=== PATIENT | female | born 1985 | race Caucasian/White ===

== ENCOUNTER 2017-04-24 07:34 | Inpatient (IN) | payer MEDICAID ==
[2017-04-24 08:16] LABS: APPEARANCE,URINE SLIGHTLY-CLOUDY; BILIRUBIN,URINE NEGATIVE (NEGATIVE); COLOR,URINE YELLOW; GLUCOSE, URINE NEGATIVE (NEGATIVE); KETONES,URINE NEGATIVE (NEGATIVE); LEUKOCYTE ESTERASE,URINE NEGATIVE (NEGATIVE); NITRITE,URINE NEGATIVE (NEGATIVE); PROTEIN,URINE NEGATIVE (NEGATIVE); URINE SPECIFIC GRAVITY 1.013; UROBILINOGEN,URINE NEGATIVE mg/dL (<2.0)
[2017-04-24 08:41] LABS: URINE AMPHETAMINES SCREEN NEGATIVE; URINE BARBITURATES SCREEN NEGATIVE; URINE BENZODIAZEPINES SCREEN NEGATIVE; URINE COCAINE SCREEN NEGATIVE; URINE MARIJUANA (THC) SCREEN NEGATIVE; URINE METHADONE SCREEN NEGATIVE; URINE PHENCYCLIDINE SCREEN NEGATIVE
[2017-04-24] MEDS ORDERED: MISOPROSTOL 0.2 MG TABLET ONE (08:49)
[2017-04-24] MEDS ORDERED: OXYTOCIN 10 UNIT/ML VIAL ONE (08:50)
[2017-04-24] MEDS ORDERED: LIDOCAINE 1% INJ-PF (10 MG/ML) 30 ML SDV ONE (08:50)
[2017-04-24] MEDS ORDERED: OXYTOCIN/NORMAL SALINE 20 UNIT/1,000 ML RTUINJ ONE (08:50)
[2017-04-24] MEDS ORDERED: PSEUDOEPHEDRINE HCL 30 MG TABLET PO PRN (09:07)
[2017-04-24] MEDS ORDERED: ACETAMINOPHEN 650 MG SUPP.RECT PR PRN (09:07)
[2017-04-24] MEDS ORDERED: PROMETHAZINE HCL 25 MG SUPP.RECT PR PRN (09:07)
[2017-04-24] MEDS ORDERED: ACETAMINOPHEN WITH CODEINE #3 TABLET PO PRN ×2 (09:07)
[2017-04-24] MEDS ORDERED: GLYCERIN/WITCH HAZEL LEAF 1 EACH MED..PAD TP PRN (09:07)
[2017-04-24] MEDS ORDERED: PROMETHAZINE HCL INJ 25 MG/1 ML VIAL IV PRN (09:07)
[2017-04-24] MEDS ORDERED: DIBUCAINE 1% OINTMENT 28 GM TP PRN (09:07)
[2017-04-24] MEDS ORDERED: DIPHENHYDRAMINE HCL 25 MG CAPSULE PO PRN (09:07)
[2017-04-24] MEDS ORDERED: BENZOCAINE/MENTHOL AEROSOL SPRAY 56 ML TOP PRN (09:07)
[2017-04-24] MEDS ORDERED: OXYTOCIN/NORMAL SALINE 20 UNIT/1,000 ML RTUINJ IV PRN (09:07)
[2017-04-24] MEDS ORDERED: DIPH/PERTUSS(ACELL)/TETANUS VAC/PF 0.5 ML SYR (>=10YO) IM PRN (09:07)
[2017-04-24] MEDS ORDERED: PROMETHAZINE HCL 25 MG TABLET PO PRN (09:07)
[2017-04-24] MEDS ORDERED: NA PHOS,M-B/NA PHOS,DI-BA (ADULT) 133 ML ENEMA PR PRN (09:07)
[2017-04-24] MEDS ORDERED: MEASLES,MUMPS&RUBELLA VACC/PF 0.5 ML VIAL SUBCUT PRN (09:07)
[2017-04-24] MEDS ORDERED: MAGNESIUM HYDROXIDE SUSP 30 ML UDCUP PO PRN (09:07)
[2017-04-24] MEDS ORDERED: ZOLPIDEM TARTRATE 5 MG TABLET PO PRN (09:07)
--- NOTE | 2017-04-24 10:05 | Warning Signs in Babies ---
VOD Warning Signs Datetime Report Generated by [facility]: 04/24/2017 10:05 VOD#608 -Warning Signs in Babies: Needs to be viewed. (04/24/2017 07:39:Isak Ye RN)
[2017-04-24] MEDS ORDERED: IBUPROFEN 800 MG TABLET ONE (10:34)
[2017-04-24] MEDS ORDERED: ACETAMINOPHEN 325 MG TABLET ONE (10:34)
--- NOTE | 2017-04-24 11:11 | Warning Signs in Babies ---
VOD Warning Signs Datetime Report Generated by [facility]: 04/24/2017 11:11 VOD#608 -Warning Signs in Babies: Viewed with Parent(s)/Family (04/24/2017 07:39:Isak Ye RN)
--- NOTE | 2017-04-24 11:12 | Warning Signs in Babies ---
VOD Warning Signs Datetime Report Generated by [facility]: 04/24/2017 11:12 VOD#608 -Warning Signs in Babies: Viewed with Parent(s)/Family (04/24/2017 10:18:Isak Ye RN)
--- NOTE | 2017-04-24 11:14 | Delivery Summary ---
Del Sum A-C Datetime Report Generated by CPN: 04/24/2017 11:14 DELIVERY PERSONNEL DELIVERY PERSONNEL: [id number] Delivery Doctor:: Layne Muñiz MD Labor and Delivery Nurse:: Isak Ye RN Labor and Delivery Nurse:: Beatriz Vincent RN Additional Personnel: : Almaz WoodCHIPC MATERNAL INFORMATION Delivery Anesthesia: None Medications After Delivery: Pitocin 10 Units IM Estimated Blood Loss (ml): 150 Maternal Complications: Precipitous Labor (<3hrs) Provider Comments: precipitous delivery within 30min of arrival LABOR SUMMARY EDC: 04/23/2017 00:00 No. Babies in Womb: 1 Attempted: No Labor Anesthesia: None LABOR INFORMATION Reason for Induction: Not Applicable Onset of Labor: 04/24/2017 07:57 Complete Dilatation: 04/24/2017 08:47 Oxytocin: N/A Group B Beta Strep: negative Steroids Given: None Reason Steroids Not Administered: Not Applicable MEMBRANES Membranes Rupture Method: Spontaneous Rupture of Membranes: 04/24/2017 08:45 Length of Rupture (hr): 0.12 Amniotic Fluid Color: Clear Amniotic Fluid Amount: Small Amniotic Fluid Odor: Normal STAGES OF LABOR Stage 1 hr: 0 Stage 1 min: 50 Stage 2 hr: 0 Stage 2 min: 5 Stage 3 hr: 0 Stage 3 min: 5 Total Time in Labor hr: 1 Total Time in Labor min: 0 VAGINAL DELIVERY Episiotomy: None Laceration #1: None Laceration Extension #1: N/A Laceration Repair: Not Applicable Sponge Count Correct: N/A Sharps Count Correct: N/A CSECTION DELIVERY Primary Indication: N/A Secondary Indication: N/A CSection Urgency: n/a CSection Incidence: n/a Labor: N/A Elective: N/A CSection Incision: N/A BABY A INFORMATION Delivery Date/Time: 04/24/2017 08:52 Method of Delivery: Vaginal Born in Route : No : N/A Forceps: N/A Vacuum Extraction: N/A Shoulder Dystocia : No PRESENTATION/POSITION BABY A Presentation: Cephalic Cephalic Presentation: Vertex Vertex Position: Left Occipital Anterior Breech Presentation: N/A PLACENTA INFORMATION BABY A Placenta Delivery Time : 04/24/2017 08:57 Placenta Method of Delivery: Spontaneous Placenta Status: Delivered SCORES BABY A Heart Rate 1 min: >100 bpm Resp Effort 1 min: Good Cry Reflex Irritability 1 min: Cough or Sneeze or Pulls Away Muscle Tone 1 min: Active Motion Color 1 min: Body Elcho, Extremities Blue Resuscitation Effort 1 min: Tactile Stimulation SCORE 1 MIN: 9 Heart Rate 5 min: >100 bpm Resp Effort 5 min: Good Cry Reflex Irritability 5 min: Cough or Sneeze or Pulls Away Muscle Tone 5 min: Active Motion Color 5 min: Completely Elcho SCORE 5 MIN: 10 INFORMATION BABY A Gestational Age at Delivery: 40.1 Gestational Status: Full Term- 39- 40.6 Weeks Outcome : Liveborn Condition : Stable Sex: Female IDENTIFICATION BABY A Infant Verification Date/Time: 04/24/2017 09:18 ID Band Number: [id number] Mother's Name Verified: Yes Infant RN Verifying Infant: D Bellavance RNC Additional Verifying Personnel: Beverly Haywood 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 Cord Vessels: 3 Nuchal Cord : N/A Cord Blood Taken: Yes-For Eval (Mom's Blood Type - or O+) Infant Suction: None ASSESSMENT BABY A Complications: None Physical Findings at Delivery: Within Normal Limits; Other Physical Findings- Other: see nursery notes Infant Respirations: Appears Normal Skin to Skin: Yes Roof Slater/ALS Called : No Care By: Laci Wood RNC Transferred To: Remains with Mother BABY B INFORMATION : N/A
[2017-04-24 11:46] LABS: RUBELLA IGG ANTIBODY 6.97 IU/mL
[2017-04-24 11:48] LABS: RUBELLA INTERPRETATION NEGATIVE
--- NOTE | 2017-04-24 12:08 | Admission Physical ---
Datetime Report Generated by CPN: 04/24/2017 12:07 CURRENT ADMISSION Chief Complaint: Uterine Contractions Indication for Induction: Not Applicable Indication for Induction: Term, Intrauterine ; Active Labor Admit Plan: Admit to Unit; Initiate Labor Protocol ALLERGIES Medication Allergies: Yes Medication Allergies: cefuroxime (04/24/2017) Latex: No Latex Allergies OBSTETRICAL HISTORY EDC: 04/23/2017 00:00 : 5 Para: 4 Term: 3 : 1 SAB: 0 IAB: 0 Ectopic: 0 Livin Cesareans: 0 VBACs: 0 Multiple Births: 0 Gestational Diabetes: No Rh Sensitization: No Incompetent Cervix: No GABRIELA: No Infertility: No ART Treatment: No Uterine Anomaly: No IUGR: No Hx Previous C/S: No Macrosomia: No Hx Loss/Stillborn: No PIH: No Hx : No Placenta Previa/Abruption: No Depression/PP Depression: No PTL/PROM: No Post Hemorrhage: No Current Procedures: Ultrasound; NST Obstetrical History Comments: G1-2007 36 wks G2 2011 39 wks G3 2013 39 wks G4 2014 39 wks SEE RECORDS Alcohol: No Marijuana : No Cocaine: No Other Illicit Drugs: No Cigarettes: Never Smoker. [id number] MEDICAL HISTORY Diabetes: No Blood Transfusion: No Pulmonary Disease (Asthma, TB): No Breast Disease: No Hypertension: No Aws Developer Surgery: No Heart Disease: No Hosp/Surgery: No Autoimmune Disorder: No Anesthetic Complications: No Kidney Disease: No Abnormal Pap Smear: No Neuro/Epilepsy: No Psychiatric Disorders: No Other Medical Diseases: No Hepatitis/Liver Disease: No Significant Family History: No Varicosities/Phlebitis: No Trauma/Violence : No Thyroid Dysfunction: No INFECTIOUS HISTORY Gonorrhea: No Genital Herpes: No Chlamydia: No Tuberculosis: No Syphilis: No Hepatitis: No HIV/AIDS Exposure: No Rash or Viral Illness: No HPV: No PHYSICAL EXAM General: Normal HEENT: Normal Neurologic: Normal Thyroid: Normal Heart: Normal Lungs: Normal Breast: Normal Back: Normal Abdomen: Normal Genitourinary Exam: Normal Extremities: Normal DTRs: Normal Pelvic Type: Adequate Vital Signs: Reviewed VAGINAL EXAM Dilatation: 10 Effacement: 100 Station: 3 MEMBRANES Pooling: Positive Membranes: Ruptured Amniotic Fluid Color: Clear FETUS A EGA: 40.1 Monitoring: External US FHR- Baseline: 150 Variability: Moderate 6-25bpm Accelerations: 15X15 Decelerations: None FHR Category: Category I Estimated Weight (gm): 3500 Presentation: Vertex Admit Comment: delivered within 30 min of arrival to unit PLANS FOR LABOR AND DELIVERY Labor and Delivery: None Pain Management: Epidural Feeding Preference: Breast Benefit of Breast Feed Discussed: Yes Circumcision: Yes INFORMED CONSENT Signature: with User ID: [email or web address]
[2017-04-24] MEDS: DOCUSATE SODIUM 100 MG CAPSULE PO SCH ×2 (12:27→19:04)
[2017-04-24] MEDS: FAMOTIDINE 20 MG TABLET PO SCH ×2 (12:27→21:29)
[2017-04-24] MEDS: PRENATAL VITAMIN W DHA CAPSULE PO SCH (12:28)
[2017-04-24] MEDS: SENNOSIDES/DOCUSATE 8.6-50 MG 1 EACH TABLET PO SCH (12:28)
[2017-04-24] MEDS: FERROUS SULFATE 325 MG TABLET PO SCH ×2 (12:28→19:04)
[2017-04-24 13:45] LABS: HEMATOCRIT 35.3 % (36.0-47.0); HEMOGLOBIN 11.2 g/dL (12.0-15.5); MEAN CORPUSCULAR HGB CONC 31.7 g/dL (32.0-36.0); MEAN CORPUSCULAR VOLUME 76 fl (80-97); PLATELET COUNT 252 10^3/uL (150-450); RED BLOOD COUNT 4.66 10^6/uL (3.72-5.28); RED CELL DISTRIBUTION WIDTH 18.9 % (11.5-14.0); WHITE BLOOD COUNT 11.8 10^3/uL (4.0-10.5)
[2017-04-24] MEDS: IBUPROFEN 800 MG TABLET PO SCH ×2 (15:20→21:28)
[2017-04-25] MEDS: IBUPROFEN 800 MG TABLET PO SCH ×3 (05:58→22:49)
[2017-04-25 07:41] LABS: HEPATITIS C VIRUS AB <0.1 s/co ratio (0.0-0.9)
[2017-04-25 08:00] LABS: HEMATOCRIT 29.8 % (36.0-47.0); HEMOGLOBIN 9.7 g/dL (12.0-15.5); MEAN CORPUSCULAR HEMOGLOBIN 24.5 pg (27.0-33.4); MEAN CORPUSCULAR HGB CONC 32.4 g/dL (32.0-36.0); MEAN CORPUSCULAR VOLUME 76 fl (80-97); PLATELET COUNT 209 10^3/uL (150-450); RED BLOOD COUNT 3.94 10^6/uL (3.72-5.28); RED CELL DISTRIBUTION WIDTH 19.1 % (11.5-14.0); WHITE BLOOD COUNT 10.3 10^3/uL (4.0-10.5)
[2017-04-25 09:24] LABS: HEPATITS B SURFACE ANTIGEN Negative (Negative)
[2017-04-25] MEDS: FERROUS SULFATE 325 MG TABLET PO SCH ×2 (09:45→17:18)
[2017-04-25] MEDS: DOCUSATE SODIUM 100 MG CAPSULE PO SCH ×2 (09:45→17:19)
[2017-04-25] MEDS: SENNOSIDES/DOCUSATE 8.6-50 MG 1 EACH TABLET PO SCH (09:45)
[2017-04-25] MEDS: FAMOTIDINE 20 MG TABLET PO SCH ×2 (09:45→22:49)
[2017-04-25] MEDS: PRENATAL VITAMIN W DHA CAPSULE PO SCH (09:46)
--- NOTE | 2017-04-25 13:18 | PDOC PROGRESS REPORT ---
Subjective-OB Subjective: Post Delivery Day:1 31 year old G5 now P5 s/p ppd1. Ambulating, voiding and without difficulty. Denies any needs at this time Physical Exam (OB) Vital Signs: Temp Pulse Resp BP Pulse Ox 97.8 F 65 14 118/72 98 04/25/17 07:52 04/25/17 07:52 04/25/17 07:52 04/25/17 07:52 04/25/17 07:52 Intake & Output 04/24/17 04/25/17 04/26/17 06:59 06:59 06:59 Weight 97 kg - General General Appearance: Appears well In distress: None - Episiotomy/Laceration Site Condition: N/A - Lochia Lochia Amount: Small 10-25 ml Lochia Color: Rubra/Red - Abdomen Description: Soft Hernia Present: No Flatus Presence: Present Fundal Description: Firm, Midline Fundal Height: u/u - u/2 - Respiratory Respiratory Status: No respiratory distress - Extremities Upper extremity: Normal inspection Lower extremities: Normal inspection - Neurological Cognition: Normal Orientation: AAOx4 - Psychological Associated symptoms: Normal affect, Normal mood Objective-Diagnostic Laboratory: 04/25/17 07:37 04/24/17 04/24/17 04/25/17 10:00 10:00 07:37 WBC 11.8 H 10.3 RBC 4.66 3.94 Hgb 11.2 L 9.7 L Hct 35.3 L 29.8 L MCV 76 L 76 L MCH 24.0 L 24.5 L MCHC 31.7 L 32.4 RDW 18.9 H 19.1 H Plt Count 252 209 Blood Type O POSITIVE Antibody Screen NEGATIVE Assessment and Plan(PN) - Assessment and Plan (1) Acute blood loss anemia Is this a current diagnosis for this admission?: Yes Plan: inc. dietary iron and feso4 BID. (2) Vaginal delivery Is this a current diagnosis for this admission?: Yes Plan: routine pp care - Time Spent with Patient Time with patient: Less than 15 minutes Medications reviewed and adjusted accordingly: Yes - Disposition Anticipated Discharge: Home Within: within 24 hours
[2017-04-26] MEDS: IBUPROFEN 800 MG TABLET PO SCH (06:20)
[2017-04-26] MEDS: SENNOSIDES/DOCUSATE 8.6-50 MG 1 EACH TABLET PO SCH (09:37)
[2017-04-26] MEDS: DOCUSATE SODIUM 100 MG CAPSULE PO SCH (09:37)
[2017-04-26] MEDS: PRENATAL VITAMIN W DHA CAPSULE PO SCH (09:37)
[2017-04-26] MEDS: FERROUS SULFATE 325 MG TABLET PO SCH (09:37)
[2017-04-26] MEDS: FAMOTIDINE 20 MG TABLET PO SCH (09:38)
--- NOTE | 2017-04-26 10:51 | PDOC DISCHARGE SUMMARY ---
Final Diagnosis Discharge Date: 04/26/17 - Final Diagnosis (1) Acute blood loss anemia Is this a current diagnosis for this admission?: Yes (2) Vaginal delivery Is this a current diagnosis for this admission?: Yes Discharge Data - Discharge Medication Home Medications: Vit,Calc76/Iron/Folic [Prenatabs Rx Tablet] 1 tab PO DAILY 04/24/17 Intrapartum Procedure(s): Spontaneous Vaginal Delivery - Diagnosis Test Laboratory: Temp Pulse Resp BP Pulse Ox 98.3 F 73 16 110/64 98 04/26/17 07:19 04/26/17 07:19 04/26/17 07:19 04/26/17 07:19 04/26/17 07:19 04/24/17 04/24/17 04/25/17 07:52 10:00 07:37 RBC 4.66 3.94 Hgb 11.2 L 9.7 L Hct 35.3 L 29.8 L Urine Opiates Screen NEGATIVE - Discharge information/Instructions Discharge Activity: Activity As Tolerated Discharge Diet: Regular Disposition: HOME, SELF-CARE Follow up with: [facility] in: 4
[2017-04-26 11:47] VITALS: BP 118/72
== END 2017-04-26 13:00 | disposition home or self-care (01) | DRG 775 ==
LOC: LC 07:34 → LR 08:55 → 2S 12:06
PROVIDERS: ADMIT Obstetrics & Gynecology; ATTEND Obstetrics & Gynecology
PROC: 10E0XZZ Delivery of Products of Conception, External Approach (ICD-10-PCS; principal; 2017-04-24)
PROC: 4A1HXCZ Monitoring of Products of Conception, Cardiac Rate, External Approach (ICD-10-PCS; 2017-04-24)
DX: O62.3 Precipitate labor (principal); D62 Acute posthemorrhagic anemia; O99.02 Anemia complicating childbirth; Z28.21 Immunization not carried out because of patient refusal; Z3A.40 40 weeks gestation of pregnancy; Z37.0 Single live birth
CPT/HCPCS: 36415; 80307; 81005; 85027; 86592; 86762; 86803; 86804; 86850; 86900; 86901; 87340; J2590; J3490

== ENCOUNTER 2018-03-08 18:29 | Emergency (ER) | payer OTHER, MEDICAID ==
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
[2018-03-08 21:43] VITALS: BP 118/78
== END 2018-03-08 21:42 | disposition home or self-care (01) ==
LOC: ER 18:29
DX: S09.90XA Unspecified injury of head, initial encounter (principal); F44.89 Other dissociative and conversion disorders; R51 Headache; H53.8 Other visual disturbances; M54.2 Cervicalgia; M54.9 Dorsalgia, unspecified; F41.9 Anxiety disorder, unspecified; Z87.891 Personal history of nicotine dependence; V87.7XXA Person injured in collision between other specified motor vehicles (traffic), initial encounter; Y92.410 Unspecified street and highway as the place of occurrence of the external cause
CPT/HCPCS: 99284; 70450; 72125; L0120

== ENCOUNTER → 2018-06-14 | Outpatient (CLI) | payer MEDICAID | LOC: OD 11:20 | PROVIDERS: ATTEND Family Medicine | DX: M22.2X2 Patellofemoral disorders, left knee (principal) ==

== ENCOUNTER 2019-03-16 11:08 | Emergency (ER) | payer MEDICAID ==
--- NOTE | 2019-03-16 11:52 | ER Document Report ---
ED Medical Screen (RME) - General Chief Complaint: Vag Bleeding, +preg <12wks Stated Complaint: VAGINAL BLEEDING Time Seen by Provider: 03/16/19 11:44 Primary Care Provider: EUGENIO MONDRAGON MD [Primary Care Provider] - Follow up as needed Mode of Arrival: Ambulatory Information source: Patient Notes: 33-year-old female presented to ED for complaint of pelvic cramping and vaginal bleeding. She is 5 weeks . She is 6 para 5. Patient is alert oriented respirations regular nonlabored speaking in full sentences. States the bleeding is like a stool cycle. I have greeted and performed a rapid initial assessment of this patient. A comprehensive ED assessment and evaluation of the patient, analysis of test results and completion of medical decision making process will be conducted by an additional ED providers. TRAVEL OUTSIDE OF THE [place] IN LAST 30 DAYS: No - Related Data Allergies/Adverse Reactions: cefuroxime Allergy (Verified 04/24/17 07:50) Past Medical History Renal/ Medical History: Reports: Hx Peritoneal Dialysis Psychiatric Medical History: Reports: Hx Anxiety Physical Exam - Vital signs Vitals: Temp Pulse BP Pulse Ox 99.1 F 78 126/77 H 99 03/16/19 11:12 03/16/19 11:12 03/16/19 11:12 03/16/19 11:12 Course - Vital Signs Vital signs: Temp Pulse Resp BP Pulse Ox 99.1 F 78 126/77 H 99 03/16/19 11:12 03/16/19 11:12 03/16/19 11:12 03/16/19 11:12 Doctor's Discharge - Discharge Referrals: EUGENIO MONDRAGON MD [Primary Care Provider] - Follow up as needed
--- NOTE | 2019-03-16 12:45 | RADIOLOGY REPORT (SQ) ---
EXAM DESCRIPTION: U/S OB TRANSVAGINAL W/O DOP COMPLETED DATE/TIME: 03/16/2019 12:20 pm REASON FOR STUDY: Cramping vaginal bleeding COMPARISON: None. TECHNIQUE: Transvaginal static and realtime grayscale images acquired of the pelvis. Additional cruz cted spectral and color Doppler images recorded. All images stored on PACs. CLINICAL AGE: 5 weeks 1 day. BHCG: Not available. LIMITATIONS: None. FINDINGS: UTERUS: No visualized intrauterine . RIGHT ADNEXA: Normal ovary with normal vascular flow. No adnexal free fluid. 2 simple cysts measuring up to 5 cm. LEFT ADNEXA: Normal ovary with normal vascular flow. No adnexal free fluid. No adnexal masses. FREE FLUID: None. OTHER: No other significant finding. IMPRESSION: NO VISUALIZED INTRA- OR EXTRAUTERINE . bHCG LEVEL NOT AVAILABLE FOR CORRELATION WITH US FINDINGS. ECTOPIC CANNOT BE EXCLUDED. FOLLOW-UP ULTRASOUND AND SERIAL BHCG LEVELS STRONGLY RECOMMENDED TO ACCURATELY ASSESS STATU S. TECHNICAL DOCUMENTATION: JOB ID: [id number] [email or web address]- All Rights Reserved Reading location - IP/workstation name: [email or web address]
[2019-03-16 12:49] LABS: ABSOLUTE BASOPHILS # (AUTO) 0.1 10^3/uL (0.0-0.2); ABSOLUTE EOSINOPHILS # (AUTO) 0.3 10^3/uL (0.0-0.6); ABSOLUTE LYMPHOCYTES (AUTO) 1.2 10^3/uL (0.5-4.7); ABSOLUTE MONOCYTES (AUTO) 0.5 10^3/uL (0.1-1.4); BASOPHILS % (AUTO) 0.9 % (0-2); HEMATOCRIT 40.1 % (36.0-47.0); HEMOGLOBIN 13.4 g/dL (12.0-15.5); LYMPHOCYTES % (AUTO) 19.2 % (13-45); MEAN CORPUSCULAR HGB CONC 33.4 g/dL (32.0-36.0); MEAN CORPUSCULAR VOLUME 87 fl (80-97); MONOCYTES % (AUTO) 7.6 % (3-13); PLATELET COUNT 213 10^3/uL (150-450); RED BLOOD COUNT 4.61 10^6/uL (3.72-5.28); SEGMENTED NEUTROPHILS % (AUTO) 67.3 % (42-78); TOTAL CELLS COUNTED % (AUTO) 100 %
[2019-03-16 13:13] LABS: ALBUMIN 4.3 g/dL (3.5-5.0); ALKALINE PHOSPHATASE 67 U/L (38-126); ANION GAP 8 (5-19); ASPARTATE AMINO TRANSFERASE 26 U/L (14-36); BILIRUBIN,DIRECT 0.1 mg/dL (0.0-0.4); BILIRUBIN,TOTAL 0.9 mg/dL (0.2-1.3); BLOOD UREA NITROGEN 8 mg/dL (7-20); CARBON DIOXIDE 27 mmol/L (22-30); CHLORIDE 107 mmol/L (98-107); GLUCOSE 89 mg/dL (75-110); POTASSIUM 4.3 mmol/L (3.6-5.0); TOTAL PROTEIN 7.5 g/dL (6.3-8.2)
--- NOTE | 2019-03-16 14:13 | ER Document Report ---
ED General - General Chief Complaint: OB Problem (<20wks) Stated Complaint: VAGINAL BLEEDING Time Seen by Provider: 03/16/19 11:44 Primary Care Provider: EUGENIO MONDRAGON MD [ACTIVE STAFF] - Follow up in 3-5 days Mode of Arrival: Ambulatory Information source: Patient Notes: This 33-year-old female approximately 5 weeks G6, P5 presents to the emergency department with very light bleeding and some abdominal cramping. Denies trauma. Denies pain with void. Denies other symptoms such as fever vomiting diarrhea. Has not followed up with DEPLOYMENT TECHNICIAN yet. Reports that she has been 5 times each 1 has been a vaginal without complications. TRAVEL OUTSIDE OF THE [place] IN LAST 30 DAYS: No - Related Data Allergies/Adverse Reactions: cefuroxime Allergy (Verified 04/24/17 07:50) Past Medical History - General Information source: Patient Last Menstrual Period: 02/08/19 - Social History Smoking Status: Unknown if Ever Smoked Chew tobacco use (# tins/day): No Frequency of alcohol use: None Drug Abuse: None Lives with: Family Family History: Reviewed & Not Pertinent Patient has suicidal ideation: No Patient has homicidal ideation: No Psychiatric Medical History: Reports: Hx Anxiety Review of Systems - Review of Systems Notes: Review HPI for review of systems., All other systems negative Physical Exam - Vital signs Vitals: Temp Pulse BP Pulse Ox 99.1 F 78 126/77 H 99 03/16/19 11:12 03/16/19 11:12 03/16/19 11:12 03/16/19 11:12 - Notes Notes: PHYSICAL EXAMINATION: GENERAL: Well-appearing and in no acute distress HEAD: Atraumatic, normocephalic. EYES: Pupils equal round . Moist mucous membranes. NECK: Normal range of motion, supple without lymphadenopathy LUNGS: CTAB and equal. No wheezes rales or rhonchi. HEART: Regular rate and rhythm without murmurs ABDOMEN: Soft, no tenderness. No guarding, no rebound EXTREMITIES: Normal range of motion, NEUROLOGICAL: Cranial nerves grossly intact. PSYCH: Normal mood, normal affect. SKIN: Warm, Dry, normal turgor, no rashes or lesions noted Course - Re-evaluation Re-evalutation: 03/16/19 19:32 This 33-year-old female approximately 5 weeks G6, P5, presents emergency department with complaints of some abdominal cramping. Reports all previous pregnancies were vaginal births without complications. Patient reports last menstrual period was February 08. Patient was instructed on labs. Instructed on no IUP visualized. She was also instructed on possibility of ectopic and the importance of close follow-up. She was given a referral sheet to get outpatient hCG. She was also instructed on the importance of follow-up ultrasound. She was instructed to return the emergency department for severe pain uncontrolled bleeding. She verbalized understanding to all instructions. 03/16/19 12:31 03/16/19 12:31 MCV 87 fl (80-97) 03/16/19 12:31 MCH 29.0 pg (27.0-33.4) 03/16/19 12:31 MCHC 33.4 g/dL (32.0-36.0) 03/16/19 12:31 RDW 14.0 % (11.5-14.0) 03/16/19 12:31 Seg Neutrophils % 67.3 % (42-78) 03/16/19 12:31 Chloride 107 mmol/L (98-107) 03/16/19 12:31 Carbon Dioxide 27 mmol/L (22-30) 03/16/19 12:31 Anion Gap 8 (5-19) 03/16/19 12:31 Est GFR ( Amer) > 60 (>60) 03/16/19 12:31 Glucose 89 mg/dL (75-110) 03/16/19 12:31 Calcium 9.0 mg/dL (8.4-10.2) 03/16/19 12:31 Total Bilirubin 0.9 mg/dL (0.2-1.3) 03/16/19 12:31 AST 26 U/L (14-36) 03/16/19 12:31 Alkaline Phosphatase 67 U/L (38-126) 03/16/19 12:31 Total Protein 7.5 g/dL (6.3-8.2) 03/16/19 12:31 Albumin 4.3 g/dL (3.5-5.0) 03/16/19 12:31 Urine Color YELLOW 03/16/19 13:25 Urine Appearance SLIGHTLY-CLOUDY 03/16/19 13:25 Urine pH 6.0 (5.0-9.0) 03/16/19 13:25 Ur Specific [place] 1.016 03/16/19 13:25 Urine Protein NEGATIVE mg/dL (NEGATIVE) 03/16/19 13:25 Urine Glucose (UA) NEGATIVE mg/dL (NEGATIVE) 03/16/19 13:25 Urine Ketones NEGATIVE mg/dL (NEGATIVE) 03/16/19 13:25 Urine Blood LARGE (NEGATIVE) H 03/16/19 13:25 Urine RBC (Auto) >182 /HPF 03/16/19 13:25 Blood Type O POSITIVE 03/16/19 12:31 Obstetrics Ultrasound 03/16/19 11:52 IMPRESSION: NO VISUALIZED INTRA- OR EXTRAUTERINE . bHCG LEVEL NOT AVAILABLE FOR CORRELATION WITH US FINDINGS. ECTOPIC CANNOT BE EXCLUDED. FOLLOW-UP ULTRASOUND AND SERIAL BHCG LEVELS STRONGLY RECOMMENDED TO ACCURATELY ASSESS STATUS. Dictation of this chart was performed using voice recognition software; there fore, there may be some unintended grammatical errors. 03/16/19 19:34 - Vital Signs Vital signs: Temp Pulse Resp BP Pulse Ox 98.6 F 77 14 122/70 100 03/16/19 14:34 03/16/19 14:34 03/16/19 14:34 03/16/19 14:34 03/16/19 14:34 - Laboratory Result Diagrams: 03/16/19 12:31 03/16/19 12:31 Laboratory results interpreted by me: 03/16/19 03/16/19 12:31 13:25 Beta HCG, Quant 13.62 H Urine Blood LARGE H Discharge - Discharge Clinical Impression: Condition: Stable Disposition: HOME, SELF-CARE Instructions: Ectopic Precaution ([facility]), Ob-Chief Knowledge Officer Doctors, ([facility]) Additional Instructions: *You have been evaluated for abdominal cramping, Your ultrasound was inconclusive no intrauterine was visualized. Your hCG level was very low 13.62. An ectopic cannot be ruled out. *You may call [facility] for your results on Monday, March 19 from noon to midnight *Please follow-up on Monday, March 18 for repeat hCG level. *Follow-up with DEPLOYMENT TECHNICIAN within 1 week for evaluation and ultrasound. *Return to ED for worsening condition, changes, needs, severe abdominal pain, vaginal bleeding, concerns Monitor your blood pressure. Your blood pressure was elevated today. This may be because you were anxious, in pain or because you need medication. It is important to follow up with your primary care provider for full evaluation. Forms: Elevated Blood Pressure, Follow-Up Laboratory Testing, Return to Work Referrals: EUGENIO MONDRAGON MD [ACTIVE STAFF] - Follow up in 3-5 days
[2019-03-16 14:18] LABS: APPEARANCE,URINE SLIGHTLY-CLOUDY; BILIRUBIN,URINE NEGATIVE (NEGATIVE); COLOR,URINE YELLOW; GLUCOSE, URINE NEGATIVE (NEGATIVE); KETONES,URINE NEGATIVE (NEGATIVE); PROTEIN,URINE NEGATIVE (NEGATIVE); URINE SPECIFIC GRAVITY 1.016; UROBILINOGEN,URINE NEGATIVE mg/dL (<2.0)
[2019-03-16 14:37] VITALS: BP 122/70
== END 2019-03-16 14:36 | disposition home or self-care (01) ==
LOC: ER 11:08
DX: O46.91 Antepartum hemorrhage, unspecified, first trimester (principal); O26.891 Other specified pregnancy related conditions, first trimester; R10.9 Unspecified abdominal pain; Z3A.01 Less than 8 weeks gestation of pregnancy
CPT/HCPCS: 36415; 76817; 80053; 81001; 84702; 85025; 86900; 86901; 99284

== ENCOUNTER → 2019-03-18 | Outpatient (CLI) | payer MEDICAID | LOC: OD 12:52 | PROVIDERS: ATTEND Nurse Practitioner Family | DX: O26.899 Other specified pregnancy related conditions, unspecified trimester (principal); R10.9 Unspecified abdominal pain; Z3A.00 Weeks of gestation of pregnancy not specified | CPT/HCPCS: 36415; 84702 ==

== ENCOUNTER 2020-03-09 10:07 | Inpatient (IN) | payer BC, MEDICAID ==
[2020-03-09 10:43] LABS: APPEARANCE,URINE CLOUDY; BILIRUBIN,URINE NEGATIVE (NEGATIVE); COLOR,URINE YELLOW; GLUCOSE, URINE NEGATIVE (NEGATIVE); KETONES,URINE NEGATIVE (NEGATIVE); LEUKOCYTE ESTERASE,URINE MODERATE (NEGATIVE); NITRITE,URINE NEGATIVE (NEGATIVE); PROTEIN,URINE NEGATIVE (NEGATIVE); URINE SPECIFIC GRAVITY 1.008; UROBILINOGEN,URINE NEGATIVE mg/dL (<2.0)
[2020-03-09 10:58] LABS: URINE AMPHETAMINES SCREEN NEGATIVE; URINE BARBITURATES SCREEN NEGATIVE; URINE BENZODIAZEPINES SCREEN NEGATIVE; URINE COCAINE SCREEN NEGATIVE; URINE MARIJUANA (THC) SCREEN NEGATIVE; URINE METHADONE SCREEN NEGATIVE; URINE PHENCYCLIDINE SCREEN NEGATIVE
[2020-03-09] MEDS ORDERED: RINGERS SOLUTION,LACTATED 1,000 ML IV ONE (10:59)
[2020-03-09] MEDS ORDERED: RINGERS SOLUTION,LACTATED 1,000 ML IV PRN (10:59)
--- NOTE | 2020-03-09 11:06 | Admission Physical ---
Datetime Report Generated by CPN: 03/09/2020 11:06 CURRENT ADMISSION Chief Complaint: Uterine Contractions Admit Impression : Term, Intrauterine ; Active Labor Admit Plan: Admit to Unit; Initiate Labor Protocol ALLERGIES Medication Allergies: cefuroxime (03/09/2020) OBSTETRICAL HISTORY EDC: 03/09/2020 00:00 : 7 Para: 5 Term: 5 : 0 SAB: 1 IAB: 0 Ectopic: 0 Livin Cesareans: 0 Multiple Births: 0 Obstetrical History Comments: G1 - 12/06/07 36wk female 5lbs , multiple defects (per records) G2 - 05/22/2011 39wk male 6lbs G3 - 04/10/2013 39wk male 7lbs G4 - 02/17/2015 39wk male 8lbs G5 - 04/24/2017 40wk female [id number]; PPH 03/19/2019 SAB G7 - current SEE RECORDS Alcohol: No Marijuana : No Cocaine: No Cigarettes: Never Smoker. [id number] PHYSICAL EXAM General: Normal HEENT: Normal Neurologic: Normal Thyroid: Normal Heart: Normal Lungs: Normal Breast: Normal Back: Normal Abdomen: Normal Genitourinary Exam: Normal Extremities: Normal DTRs: Normal Pelvic Type: Adequate Vital Signs: Reviewed FETUS A EGA: 40.0 Monitoring: External US FHR- Baseline: 135 Variability: Moderate 6-25bpm Accelerations: 15X15 Decelerations: None Admit Comment: presents c/o increasing contractions this morning, Denies SROM. VE per RN 580/-2. GBS negative. Hx of PPH but denies needing blood transfusion in the past. Vtx on Leapolds, EFW 8+4. Pt is considering an epidural. Dr Murphy is the Attending and aware of pt status. INFORMED CONSENT Assignment: Lisa Murphy MD Signature: with User ID: [email or web address] : with User ID: [email or web address]
[2020-03-09 11:58] LABS: ABSOLUTE EOSINOPHILS # (AUTO) 0.3 10^3/uL (0.0-0.6); ABSOLUTE LYMPHOCYTES (AUTO) 1.3 10^3/uL (0.5-4.7); ABSOLUTE MONOCYTES (AUTO) 0.6 10^3/uL (0.1-1.4); ABSOLUTE NEUT (AUTO) 5.1 10^3/uL (1.7-8.2); BASOPHILS % (AUTO) 0.5 % (0-2); EOSINOPHILS % (AUTO) 4.1 % (0-6); HEMATOCRIT 32.5 % (36.0-47.0); HEMOGLOBIN 10.8 g/dL (12.0-15.5); LYMPHOCYTES % (AUTO) 17.9 % (13-45); MEAN CORPUSCULAR HGB CONC 33.4 g/dL (32.0-36.0); MEAN CORPUSCULAR VOLUME 78 fl (80-97); MONOCYTES % (AUTO) 7.7 % (3-13); PLATELET COUNT 196 10^3/uL (150-450); RED BLOOD COUNT 4.17 10^6/uL (3.72-5.28); RED CELL DISTRIBUTION WIDTH 16.3 % (11.5-14.0); SEGMENTED NEUTROPHILS % (AUTO) 69.8 % (42-78); TOTAL CELLS COUNTED % (AUTO) 100 %; WHITE BLOOD COUNT 7.3 10^3/uL (4.0-10.5)
[2020-03-09] MEDS ORDERED: EPHEDRINE SULFATE INJ 50 MG/1 ML AMPULE ONE (13:03)
[2020-03-09] MEDS ORDERED: FENTANYL/BUPIVACAINE/NS/PF 300 MCG/150 ML RTUINJ EPI ONE (13:03)
[2020-03-09] MEDS ORDERED: MISOPROSTOL 0.2 MG TABLET ONE (13:04)
[2020-03-09] MEDS ORDERED: OXYTOCIN 10 UNIT/ML VIAL ONE (13:04)
[2020-03-09] MEDS ORDERED: ROPIVACAINE HCL 0.2% INJ/PF (2 MG/ML) 20 ML SDV ONE (13:04)
[2020-03-09] MEDS ORDERED: OXYTOCIN/0.9 % SODIUM CHLORIDE 30 UNIT/500 ML RTUINJ ONE (13:04)
[2020-03-09] MEDS ORDERED: LIDOCAINE 1% INJ-PF (10 MG/ML) 30 ML SDV ONE (13:04)
--- NOTE | 2020-03-09 14:13 | L&D Progress Notes ---
PROGRESS NOTES Datetime Report Generated by CPN: 03/09/2020 14:12 PROGRESS NOTE Impression: Normal Progression of Labor; Reassuring Heart Rate Procedures: Artificial ROM; Sterile Vag Exam Plan: Continue Present Management; Anticipate Vaginal Delivery Vital Signs : Reviewed Comment: Comfortable w/ epidural. VE /-1, AROM w/ blood tinged clear fluid. Position changes encouraged. Anticipate LAST VAGINAL EXAM-NURSING Nursing Exam Dilitation: 8.0 Nursing Exam Effacement: 90 Nursing Exam Station: -2 MEMBRANES Membranes: Ruptured Amniotic Fluid Color: Bloody FETUS A FHR - Baseline: 135 Monitoring: External US Variability: Moderate 6-25bpm Accelerations: 15X15 Decelerations: None FHR Category: Category I SIGNATURE SIGNATURE: [id number];13,[id number] Assignment: Lisa Murphy MD Signature: with User ID: [email or web address] : with User ID: [email or web address]
[2020-03-09] MEDS ORDERED: PROMETHAZINE HCL 25 MG TABLET PO PRN (16:27)
[2020-03-09] MEDS ORDERED: PROMETHAZINE HCL INJ 25 MG/1 ML VIAL IV PRN (16:27)
[2020-03-09] MEDS ORDERED: PROMETHAZINE HCL 25 MG SUPP.RECT PR PRN (16:27)
[2020-03-09] MEDS ORDERED: MEASLES,MUMPS&RUBELLA VACC/PF 0.5 ML VIAL SUBCUT PRN (16:27)
[2020-03-09] MEDS ORDERED: PSEUDOEPHEDRINE HCL 30 MG TABLET PO PRN (16:27)
[2020-03-09] MEDS ORDERED: ACETAMINOPHEN 650 MG SUPP.RECT PR PRN (16:27)
[2020-03-09] MEDS ORDERED: ACETAMINOPHEN WITH CODEINE #3 TABLET PO PRN (16:27)
[2020-03-09] MEDS ORDERED: OXYTOCIN/0.9 % SODIUM CHLORIDE 30 UNIT/500 ML RTUINJ IV PRN (16:27)
[2020-03-09] MEDS ORDERED: BENZOCAINE/MENTHOL AEROSOL SPRAY 56 ML TOP PRN (16:27)
[2020-03-09] MEDS ORDERED: MAGNESIUM HYDROXIDE SUSP 30 ML UDCUP PO PRN (16:27)
[2020-03-09] MEDS ORDERED: GLYCERIN/WITCH HAZEL LEAF 1 EACH MED..WIPE TP PRN (16:27)
[2020-03-09] MEDS ORDERED: NA PHOS,M-B/NA PHOS,DI-BA (ADULT) 133 ML ENEMA PR PRN (16:27)
[2020-03-09] MEDS ORDERED: DIPHENHYDRAMINE HCL 25 MG CAPSULE PO PRN (16:27)
[2020-03-09] MEDS ORDERED: ZOLPIDEM TARTRATE 5 MG TABLET PO PRN (16:27)
[2020-03-09] MEDS ORDERED: DIPH/PERTUSS(ACELL)/TETANUS VAC/PF 0.5 ML SYR (>=10YO) IM PRN (16:27)
[2020-03-09] MEDS ORDERED: DIBUCAINE 1% OINTMENT 28 GM TP PRN (16:27)
--- NOTE | 2020-03-09 18:07 | Warning Signs in Babies ---
VOD Warning Signs Datetime Report Generated by [facility]: 03/09/2020 18:07 VOD#608 -Warning Signs in Babies: Viewed with Parent(s)/Family (03/09/2020 10:13:Colette Guo RN)
--- NOTE | 2020-03-09 18:07 | Birth Certificate Data ---
Cert Data Datetime Report Generated by [facility]: 03/09/2020 18:07 CERTIFICATE DATA 47a. Care: Yes (03/09/2020 10:13:Colette Guo RN) 47b. Date of First Visit: 08/13/2019 00:00 (03/09/2020 10:13:Colette Guo RN) 47c. Date of Last Visit: 03/03/2020 00:00 (Annotations: Data stored by Adriana on behalf of user) (03/09/2020 10:13:Colette Guo RN) 47d. Number of Visits: 14 (03/09/2020 10:13:Colette Guo RN) 48a. Number of Prev Live Births: 5 (03/09/2020 10:13:Colette Guo RN) 48b. Now Livin (03/09/2020 10:13:Colette Guo RN) 48c. Live Births Now : 0 (03/09/2020 10:13:QS system process) 48d. Date of Last Live : 04/24/2017 00:00 (03/09/2020 10:13:Colette Guo RN) 48e. Losses: 1 (03/09/2020 10:13:Colette Guo RN) 48f. Date of Last Preg Loss: 03/19/2019 00:00 (03/09/2020 10:13:Colette Guo RN) RISK FACTORS IN THIS 49a. Diabetes: No (03/09/2020 10:13:Colette Guo RN) 49b. Hypertension: No (03/09/2020 10:13:Colette Guo RN) 49c. Previous Births: 0 (03/09/2020 10:13:Colette Guo RN) 49d. Stillborns: No (03/09/2020 10:13:Colette Guo RN) 49d. IUGR: No (03/09/2020 10:13:Colette Guo RN) 49e. Infertility Treatment: No (03/09/2020 10:13:Colette Guo RN) 49f. Previous Cesareans: 0 (03/09/2020 10:13:Colette Guo RN) Mother's Height 50b. Height Inches: 67 (03/09/2020 11:05:QS system process) Mother's Weight 51a. Pre- Weight (lbs): 175 (03/09/2020 10:13:Colette Guo RN) 51b. Weight at Delivery (lbs): 229 (03/09/2020 11:05:QS system process) Infections Present/Treated 53a. Gonorrhea: No (03/09/2020 10:13:Colette Guo RN) Results this Hospital Visit : Negative (03/09/2020 10:13:Tiana Lemons RN) 53b. Syphilis: No (03/09/2020 10:13:Colette Guo RN) 53c. Chlamydia: No (03/09/2020 10:13:Colette Guo RN) Results this Hospital Visit: Negative (03/09/2020 10:13:Tiana Lemons RN) 53d. Hepatitis B: No (03/09/2020 10:13:Colette Guo RN) Results this Hospital Visit: Negative (03/09/2020 10:13:Tiana Lemons RN) 53e. Hepatitis C: Negative (03/09/2020 10:13:Tiana Lemons RN) 53h. Mother Tested for HBsAG: Yes (03/09/2020 10:13:Tiana Lemons RN) 53i. Date Tested: 08/13/2019 00:00 (03/09/2020 10:13:Tiana Lemons RN) 53j. Test Result: Negative (03/09/2020 10:13:Tiana Lemons RN) Obstetric Procedures 54a, b, c. Obstetric Procedures: Ultrasound; NST (03/09/2020 10:13:Colette Guo RN) Cigarette Smoking Cigarette Smoking: Never Smoker. [id number] (03/09/2020 10:13:Colette Guo RN) 55a. 3 Months Before Preg - Ci (03/09/2020 10:13:Colette Guo RN) 55a. Packs: 0 (03/09/2020 10:13:Colette Guo RN) 55b. 1st Trimester of Preg- Ci (03/09/2020 10:13:Colette Guo RN) 55b. Packs: 0 (03/09/2020 10:13:Colette Guo RN) 55c. 2nd Trimester of Preg- Ci (03/09/2020 10:13:Colette Guo RN) 55c. Packs: 0 (03/09/2020 10:13:Colette Guo RN) 55d. 3rd Trimester of Preg- Ci (03/09/2020 10:13:Colette Guo RN) 55d. Packs: 0 (03/09/2020 10:13:Colette Guo RN) Onset of Labor 56a. PROM >12 Hrs: 2.17 (03/09/2020 10:13:QS system process) 56b. Precipitous Labor <3 Hrs: 6 (03/09/2020 10:13:QS system process) 56c. Prolonged Labor > 20 Hrs: 6 (03/09/2020 10:13:QS system process) 57a. Induction of Labor: N/A (03/09/2020 10:13:Colette Guo RN) 57c. Non-Vertex Presentation A: Vertex (03/09/2020 10:13:Colette Guo RN) 57d. Steroids - Lung Mat: None (03/09/2020 10:13:Colette Guo RN) 57d. Steroids - Lung Mat: Not Applicable (03/09/2020 10:13:Colette Guo RN) 57f. Mat [place] or Temp >100.4: 98.4 (03/09/2020 10:13:Colette Guo RN) 57g. Moderate/Heavy Meconium: Clear (03/09/2020 14:06:Colette Guo RN) 57h. Intolerance of Labor: N/A (03/09/2020 10:13:FELIX Alba) : N/A (03/09/2020 10:13:FELIX Alba) 57i. Epidural/Spinal Anesthesia: Epidural (03/09/2020 10:13:Colette Guo RN) Method of Delivery 58a. Forceps - Unsuccessful A: N/A (03/09/2020 10:13:Colette Guo RN) 58b. Vacuum - Unsuccessful A: N/A (03/09/2020 10:13:Colette Guo RN) 58c. Presentation at 58c. Presentation at - A : Vertex (03/09/2020 10:13:Colette Guo RN) 58c. Presentation at - A : N/A (03/09/2020 10:13:Colette Guo RN) 58c. Presentation at - A : Cephalic (03/09/2020 16:01:Colette Guo RN) Final Route and Method of Del 58d. Baby A Route/Delivery: Vaginal (03/09/2020 16:16:Colette Guo RN) 58e. Trial of Labor Attempted: No (03/09/2020 10:13:Colette Guo RN) 58e. Trial of Labor Attempted A: N/A (03/09/2020 10:13:Colette Guo RN) Maternal Morbidity 59b. 3rd or 4th Degree Lacs: None (03/09/2020 10:13:Diana MeyerGEORGETTE) Birthweight Baby A: 4247 (03/09/2020 10:13:Yovana Hurley RN) 60a. Pounds : 9 (03/09/2020 10:13:QS system process) 60b. Ounces: 6 (03/09/2020 10:13:QS system process) 61. GA at Delivery Baby A: 40.0 (03/09/2020 10:13:Colette Guo RN) : Full Term- 39- 40.6 Weeks (03/09/2020 10:13:QS system process) 62a. 5 Minute Baby A: 9 (03/09/2020 10:13:QS system process)
--- NOTE | 2020-03-09 18:07 | Delivery Summary ---
Del Sum A-C Datetime Report Generated by CPN: 03/09/2020 18:07 DELIVERY PERSONNEL DELIVERY PERSONNEL: [id number] Nurse Tank Crewmember Certified:: Diana Meyer CNM Labor and Delivery Nurse:: Colette Guo RN Environmental Conservation Officer/SOLID PLASTERER: Carmenza [facility] Environmental Conservation Officer/SOLID PLASTERER: Shannon Fernandez CST Additional Personnel: : Page Avitia RN MATERNAL INFORMATION Delivery Anesthesia: Epidural Medications After Delivery: Pitocin 30 Units in 500ml NS/D5W Delivery QBL: 200 Maternal Complications: None Provider Comments: of VMI, Nuchal cord x 2 noted, unable to reduce. Pt vigorous and crying placed on pts abdoman in stable condition. Cord clamped and cut, cord blood collected. Placenta S/C/I, thickened area of membranes noted, will sent placenta to path. Ff w/ decreased lochia. IV Pitocin infusing. Perineum intact. Apgars 8,9. QBL 200. Pt plans to breastfeed. Attending MD is Dr Murphy LABOR SUMMARY EDC: 03/09/2020 00:00 No. Babies in Womb: 1 Attempted: No Labor Anesthesia: Epidural LABOR INFORMATION Reason for Induction: Not Applicable Onset of Labor: 03/09/2020 10:00 Complete Dilatation: 03/09/2020 16:01 Oxytocin: N/A Group B Beta Strep: negative Antibiotics # of Doses: 0 Steroids Given: None Reason Steroids Not Administered: Not Applicable MEMBRANES Membranes Rupture Method: Artificial Rupture of Membranes: 03/09/2020 14:06 Length of Rupture (hr): 2.17 Amniotic Fluid Color: Clear Amniotic Fluid Amount: Small Amniotic Fluid Odor: None STAGES OF LABOR Stage 1 hr: 6 Stage 1 min: 1 Stage 2 hr: 0 Stage 2 min: 15 Stage 3 hr: 0 Stage 3 min: 5 Total Time in Labor hr: 6 Total Time in Labor min: 21 VAGINAL DELIVERY Episiotomy: None Laceration #1: None Laceration Extension #1: N/A Laceration Repair: Not Applicable Sponge Count Correct: N/A Sharps Count Correct: N/A CSECTION DELIVERY Primary Indication: N/A Secondary Indication: N/A CSection Incidence: N/A Labor: N/A Elective: N/A CSection Incision: N/A BABY A INFORMATION Infant Delivery Date/Time: 03/09/2020 16:16 Method of Delivery: Vaginal Nurse Controlled Delivery: No Born in Route : No : N/A Forceps: N/A Vacuum Extraction: N/A Shoulder Dystocia : No PRESENTATION/POSITION BABY A Presentation: Cephalic Cephalic Presentation: Vertex Vertex Position: Right Occipital Anterior Breech Presentation: N/A PLACENTA INFORMATION BABY A Placenta Delivery Time : 03/09/2020 16:21 Placenta Method of Delivery: Spontaneous Placenta Status: Delivered SCORES BABY A Heart Rate 1 min: >100 bpm Resp Effort 1 min: Good Cry Reflex Irritability 1 min: Cough or Sneeze or Pulls Away Muscle Tone 1 min: Active Motion Color 1 min: Blue/Pale Resuscitation Effort 1 min: Tactile Stimulation SCORE 1 MIN: 8 Heart Rate 5 min: >100 bpm Resp Effort 5 min: Good Cry Reflex Irritability 5 min: Cough or Sneeze or Pulls Away Muscle Tone 5 min: Active Motion Color 5 min: Body [place], Extremities Blue Resuscitation Effort 5 min: N/A SCORE 5 MIN: 9 Resuscitation Effort 10 min: N/A INFANT INFORMATION BABY A Gestational Age at Delivery: 40.0 Gestational Status: Full Term- 39- 40.6 Weeks Infant Outcome : Liveborn Infant Condition : Stable Infant Sex: Male IDENTIFICATION BABY A Verification Date/Time: 03/09/2020 16:41 ID Band Number: [id number] Mother's Name Verified: Yes RN Verifying Infant: M Brant Additional Verifying Personnel: L White WEIGHT/LENGTH BABY A Infant Birthweight (gm): 4247 Infant Weight (lb): 9 Infant Weight (oz): 6 Length (in): 21.50 Length (cm): 54.61 CORD INFORMATION BABY A No. Cord Vessels: 3 Nuchal Cord : Around Neck x2, Loose Cord Blood Taken: Yes-For Eval (Mom's Blood Type - or O+) Suction: None ASSESSMENT BABY A Complications: None Physical Findings at Delivery: Within Normal Limits Infant Respirations: Appears Normal Skin to Skin: Yes Deputy District Customs Director/ALS Called : No Care By: CHIP Motley Transferred To: Remains with Mother SIGNATURES Assignment: Lisa Murphy MD Signature: with User ID: [email or web address] : with User ID: [email or web address]
[2020-03-09] MEDS ORDERED: IBUPROFEN 800 MG TABLET ONE (18:20)
[2020-03-09] MEDS: IBUPROFEN 800 MG TABLET PO SCH ×2 (18:27→22:44)
[2020-03-09] MEDS: FAMOTIDINE 20 MG TABLET PO SCH (22:48)
[2020-03-10] MEDS: DOCUSATE SODIUM 100 MG CAPSULE PO SCH ×3 (00:40→18:03)
[2020-03-10] MEDS: IBUPROFEN 800 MG TABLET PO SCH ×3 (05:46→21:55)
[2020-03-10 07:40] LABS: HEMATOCRIT 30.4 % (36.0-47.0); HEMOGLOBIN 10.3 g/dL (12.0-15.5); MEAN CORPUSCULAR HEMOGLOBIN 26.4 pg (27.0-33.4); MEAN CORPUSCULAR VOLUME 78 fl (80-97); PLATELET COUNT 171 10^3/uL (150-450); RED BLOOD COUNT 3.92 10^6/uL (3.72-5.28); RED CELL DISTRIBUTION WIDTH 16.2 % (11.5-14.0); WHITE BLOOD COUNT 10.2 10^3/uL (4.0-10.5)
--- NOTE | 2020-03-10 09:07 | PDOC PROGRESS REPORT ---
Subjective-OB Progress Note for:: 03/10/20 Subjective: Doing well, no c/o, , family at BS Physical Exam (OB) Vital Signs: Temp Pulse Resp BP Pulse Ox 97.4 F 74 16 112/62 100 03/10/20 07:57 03/10/20 07:57 03/10/20 07:57 03/10/20 07:57 03/10/20 07:57 Intake & Output 03/09/20 03/10/20 03/11/20 06:59 06:59 06:59 Output Total 800 Balance -800 Weight 103.6 kg - PIH/Pre-Eclampsia Clonus: Negative Headache: Absent Epigastric Pain: No Visual Changes: No - Maternal Morbidity 59. Maternal Morbidity (serious complications experinced by the mother associated with labor and delivery: None of the above - Lochia Lochia Amount: Scant < 10 ml Lochia Color: Rubra/Red - Abdomen Description: Soft, Round Hernia Present: No Fundal Description: Firm, Midline Fundal Height: u/u - u/2 Objective-Diagnostic Laboratory: 03/10/20 07:07 03/09/20 03/09/20 03/09/20 10:20 11:25 11:25 WBC 7.3 RBC 4.17 Hgb 10.8 L Hct 32.5 L MCV 78 L MCH 26.0 L MCHC 33.4 RDW 16.3 H Plt Count 196 Seg Neutrophils % 69.8 Urine Color YELLOW Urine Appearance CLOUDY Urine pH 6.0 Ur Specific [place] 1.008 Urine Protein NEGATIVE Urine Glucose (UA) NEGATIVE Urine Ketones NEGATIVE Urine Blood NEGATIVE Urine Nitrite NEGATIVE Ur Leukocyte Esterase MODERATE H Urine WBC (Auto) 6 Urine RBC (Auto) 3 Blood Type O POSITIVE Antibody Screen NEGATIVE 03/10/20 07:07 WBC 10.2 RBC 3.92 Hgb 10.3 L Hct 30.4 L MCV 78 L MCH 26.4 L MCHC 34.0 RDW 16.2 H Plt Count 171 Seg Neutrophils % Urine Color Urine Appearance Urine pH Ur Specific [place] Urine Protein Urine Glucose (UA) Urine Ketones Urine Blood Urine Nitrite Ur Leukocyte Esterase Urine WBC (Auto) Urine RBC (Auto) Blood Type Antibody Screen Assessment and Plan(PN) - Assessment and Plan (1) Acute blood loss anemia Is this a current diagnosis for this admission?: Yes (2) Vaginal delivery Is this a current diagnosis for this admission?: Yes - Time Spent with Patient Time with patient: Less than 15 minutes Medications reviewed and adjusted accordingly: Yes - Disposition Anticipated Discharge Disposition: Home, Self Care Anticipated Discharge Timeframe: within 24 hours
[2020-03-10] MEDS: SENNOSIDES/DOCUSATE 8.6-50 MG 1 EACH TABLET PO SCH (09:27)
[2020-03-10] MEDS: PRENATAL VITAMIN W DHA CAPSULE PO SCH (09:27)
[2020-03-10] MEDS: FAMOTIDINE 20 MG TABLET PO SCH ×2 (09:27→21:55)
[2020-03-10] MEDS: FERROUS SULFATE 325 MG TABLET PO SCH (09:27)
[2020-03-11] MEDS: IBUPROFEN 800 MG TABLET PO SCH ×2 (05:11→13:17)
[2020-03-11 09:01] VITALS: BP 98/63
[2020-03-11] MEDS: FERROUS SULFATE 325 MG TABLET PO SCH (11:07)
[2020-03-11] MEDS: PRENATAL VITAMIN W DHA CAPSULE PO SCH (11:07)
[2020-03-11] MEDS: SENNOSIDES/DOCUSATE 8.6-50 MG 1 EACH TABLET PO SCH (11:07)
[2020-03-11] MEDS: FAMOTIDINE 20 MG TABLET PO SCH (11:07)
[2020-03-11] MEDS: DOCUSATE SODIUM 100 MG CAPSULE PO SCH (11:07)
--- NOTE | 2020-03-11 11:21 | PDOC DISCHARGE SUMMARY ---
Impression - Admit/DC Date/PCP Admission Date/Primary Care Provider: 03/09/20 10:52 YULIYA DHILLON MD Discharge Date: 03/11/20 - Discharge Diagnosis (1) Acute blood loss anemia Is this a current diagnosis for this admission?: Yes (2) Vaginal delivery Is this a current diagnosis for this admission?: Yes (3) Anemia complicating , third trimester Is this a current diagnosis for this admission?: Yes - Assessment Summary: 34yo G7 now P6 s/p pp2 stable and ready for discharge, denies any concerns, understands warning s/s - Additional Information Resuscitation Status: Full Code Discharge Diet: As Tolerated, Regular Discharge Activity: Activity As Tolerated, Balance Activity w/Rest, No Lifting Over 10 Pounds, Pelvic Rest, No tub bath, Walk Frequently Referrals: YULIYA DHILLON MD [Primary Care Provider] - Prescriptions: Ibuprofen [Motrin 800 mg Tablet] 800 mg PO Q8HP PRN #20 tablet PRN Reason: For Pain Scale 1-3 Docusate Sodium [Colace 100 mg Capsule] 100 mg PO BID #60 capsule Ferrous Sulfate [Feosol 325 mg Tablet] 325 mg PO BID #60 tablet Home Medications: Vit,Calc76/Iron/Folic [Prenatabs Rx Tablet] 1 tab PO DAILY 04/24/17 Biotin 1 mg PO ASDIR PRN 03/16/19 Docusate Sodium [Colace 100 mg Capsule] 100 mg PO BID #60 capsule 03/11/20 Ferrous Sulfate [Feosol 325 mg Tablet] 325 mg PO BID #60 tablet 03/11/20 Ibuprofen [Motrin 800 mg Tablet] 800 mg PO Q8HP PRN #20 tablet 03/11/20 Hospital Course 59. Maternal Morbidity (serious complications experinced by the mother associated with labor and delivery: None of the above Results Laboratory Results: WBC 10.2 10^3/uL (4.0-10.5) 03/10/20 07:07 RBC 3.92 10^6/uL (3.72-5.28) 03/10/20 07:07 Hgb 10.3 g/dL (12.0-15.5) L 03/10/20 07:07 Hct 30.4 % (36.0-47.0) L 03/10/20 07:07 MCV 78 fl (80-97) L 03/10/20 07:07 MCH 26.4 pg (27.0-33.4) L 03/10/20 07:07 MCHC 34.0 g/dL (32.0-36.0) 03/10/20 07:07 RDW 16.2 % (11.5-14.0) H 03/10/20 07:07 Plt Count 171 10^3/uL (150-450) 03/10/20 07:07 Lymph % (Auto) 17.9 % (13-45) 03/09/20 11:25 Cloud % (Auto) 7.7 % (3-13) 03/09/20 11:25 Eos % (Auto) 4.1 % (0-6) 03/09/20 11:25 Baso % (Auto) 0.5 % (0-2) 03/09/20 11:25 Absolute Neuts (auto) 5.1 10^3/uL (1.7-8.2) 03/09/20 11:25 Absolute Lymphs (auto) 1.3 10^3/uL (0.5-4.7) 03/09/20 11:25 Absolute Monos (auto) 0.6 10^3/uL (0.1-1.4) 03/09/20 11:25 Absolute Eos (auto) 0.3 10^3/uL (0.0-0.6) 03/09/20 11:25 Absolute Basos (auto) 0.0 10^3/uL (0.0-0.2) 03/09/20 11:25 Seg Neutrophils % 69.8 % (42-78) 03/09/20 11:25 Urine Color YELLOW 03/09/20 10:20 Urine Appearance CLOUDY 03/09/20 10:20 Urine pH 6.0 (5.0-9.0) 03/09/20 10:20 Ur Specific [place] 1.008 03/09/20 10:20 Urine Protein NEGATIVE mg/dL (NEGATIVE) 03/09/20 10:20 Urine Glucose (UA) NEGATIVE mg/dL (NEGATIVE) 03/09/20 10:20 Urine Ketones NEGATIVE mg/dL (NEGATIVE) 03/09/20 10:20 Urine Blood NEGATIVE (NEGATIVE) 03/09/20 10:20 Urine Nitrite NEGATIVE (NEGATIVE) 03/09/20 10:20 Urine Bilirubin NEGATIVE (NEGATIVE) 03/09/20 10:20 Urine Urobilinogen NEGATIVE mg/dL (<2.0) 03/09/20 10:20 Ur Leukocyte Esterase MODERATE (NEGATIVE) H 03/09/20 10:20 Urine WBC (Auto) 6 /HPF 03/09/20 10:20 Urine RBC (Auto) 3 /HPF 03/09/20 10:20 Urine Bacteria (Auto) 3+ /HPF 03/09/20 10:20 Squamous Epi Cells Auto 30 /HPF 03/09/20 10:20 Urine Mucus (Auto) RARE /LPF 03/09/20 10:20 Urine Ascorbic Acid NEGATIVE (NEGATIVE) 03/09/20 10:20 Urine Opiates Screen NEGATIVE 03/09/20 10:20 Urine Methadone Screen NEGATIVE 03/09/20 10:20 Ur Barbiturates Screen NEGATIVE 03/09/20 10:20 Ur Phencyclidine Scrn NEGATIVE 03/09/20 10:20 Ur Amphetamines Screen NEGATIVE 03/09/20 10:20 U Benzodiazepines Scrn NEGATIVE 03/09/20 10:20 Urine Cocaine Screen NEGATIVE 03/09/20 10:20 U Marijuana (THC) Screen NEGATIVE 03/09/20 10:20 RPR NONREACTIVE (NONREACTIVE) 03/09/20 11:25 Blood Type O POSITIVE 03/09/20 11:25 Antibody Screen NEGATIVE 03/09/20 11:25
== END 2020-03-11 14:27 | disposition home or self-care (01) | DRG 807 ==
LOC: LC 10:07 → LR 10:52 → 2S 21:25
PROVIDERS: ADMIT Obstetrics & Gynecology; ATTEND Obstetrics & Gynecology
PROC: 10E0XZZ Delivery of Products of Conception, External Approach (ICD-10-PCS; principal; 2020-03-09)
DX: O69.81X0 Labor and delivery complicated by cord around neck, without compression, not applicable or unspecified (principal); Z37.0 Single live birth; D64.9 Anemia, unspecified; O99.02 Anemia complicating childbirth
CPT/HCPCS: 1967; 36415; 59025; 80307; 81001; 85025; 85027; 86592; 86850; 86900; 86901; 88307; J2590; J2795; J3010; J3490